=== PATIENT | male | born 1935 | race Caucasian/White ===

== ENCOUNTER 2016-09-12 12:57 | Emergency (ER) | payer MEDICARE, BC ==
[~2016-09-12] VITALS: Ht 182.9 cm; Wt 108.1 kg
[~2016-09-12 12:57] MED LIST: ASPI-770 PO
[2016-09-12 13:10] VITALS: BP 166/90
== END 2016-09-12 16:18 | disposition home or self-care (01) ==
LOC: ED 16:12
DX: T18.5XXA Foreign body in anus and rectum, initial encounter (principal); Z96.89 Presence of other specified functional implants; X58.XXXA Exposure to other specified factors, initial encounter; Y93.89 Activity, other specified; Y92.89 Other specified places as the place of occurrence of the external cause; Y99.8 Other external cause status
CPT/HCPCS: 74000; 99284